=== PATIENT | female | born 1995 | race African-American/Black ===

== ENCOUNTER 2019-01-25 05:11 | Inpatient (IN) | payer BC, MEDICAID ==
[2019-01-25] VITALS (13 sets, daily range): BP systolic 100–121; BP diastolic 52–68
[~2019-01-25] VITALS: Ht 162.6 cm; Wt 72.1 kg
[2019-01-25] MEDS ORDERED: LACTATED RINGER'S 1,000 ML IV SCH (05:26)
[2019-01-25 06:25] LABS: Basophils # (auto) 0 uL; Basophils % (auto) 0.3 % (0.0-2.0); Eosinophils # (auto) 0.2 uL; Eosinophils % (auto) 1.6 % (0.0-7.0); Hematocrit 26.7 % (36.0-46.0); Lymphocytes # (auto) 2.2 uL; Lymphocytes % (auto) 23.1 % (10.0-50.0); Mean Corpuscular Hemoglobin 27.9 pg (28.0-32.0); Mean Corpuscular Hgb Conc. 33.7 g/dL (32.0-36.0); Mean Corpuscular Volume 82.7 fL (80.0-100.0); Monocytes # (auto) 0.6 uL; Monocytes % (auto) 6.8 % (0.0-12.0); Neutrophils # (auto) 6.4 uL; Neutrophils % (auto) 68.2 % (37.0-80.0); Nucleated Red Blood Cells % 0.2 %; Platelet Count (auto) 280 10^3/uL (140-450); Red Blood Cells 3.23 10^6/uL (4.0-5.20); Red Cell Distribution Width 14.1 % (11.8-14.3); White Blood Cell 9.3 10^3/uL (4.4-10.8)
[2019-01-25 06:26] LABS: Urine Bacteria FEW /hpf (None Seen); Urine Blood Negative /uL (Negative); Urine Mucus FEW (None Seen); Urine Specific Gravity 1.022 (1.001-1.035); Urine WBC 7 /hpf (0 - 5)
[2019-01-25 06:43] LABS: Albumin 2.5 g/dL (3.4-5.0); Calcium 8.4 mg/dL (8.5-10.1)
[2019-01-25 06:44] LABS: INR 0.85 (0.9-1.15); Partial Thromboplastin Time 24.5 sec (23.78-33.04); Prothrombin Time 9.2 sec (9.27-12.13)
[2019-01-25 06:46] LABS: BUN/Creatinine Ratio 13.7; Bilirubin, Total 0.7 mg/dL (0.2-1.0); Total Protein 6.3 g/dL (6.4-8.2)
[2019-01-25 06:48] LABS: Alcohol, Urine < 3.0 mg/dL (0-5); Amphetamine Screen, Urine NEGATIVE (NEGATIVE); Barbiturate Scree,Urine NEGATIVE (NEGATIVE); Benzodiazephine Screen, Urine NEGATIVE (NEGATIVE); Cannabinoid Screen, Urine NEGATIVE (NEGATIVE); Cocaine Screen, Urine NEGATIVE (NEGATIVE); Opiate Scree,Urine NEGATIVE (NEGATIVE); Phencyclidine Screen, Urine NEGATIVE (NEGATIVE)
[2019-01-25] MEDS ORDERED: TETRACAINE 1% INJ 2 ML VIAL IJ ONE (08:48)
[2019-01-25] MEDS ORDERED: MORPHINE SULF(PF) 0.5MG/ML 10ML VIAL ONE (09:09)
[2019-01-25] MEDS ORDERED: MIDAZOLAM HCL 1MG/1ML-2 ML VIAL ONE (09:09)
[2019-01-25] MEDS ORDERED: fentaNYL CITRATE 100 MCG/2 ML VL ONE (09:09)
[2019-01-25] MEDS ORDERED: ceFAZolin 1GM VL ONE (09:12)
[2019-01-25] MEDS ORDERED: OXYTOCIN 10 UNIT/ML 10ML VIAL ONE (09:52)
[2019-01-25] MEDS ORDERED: diphenhdrAMINE HCL 50 MG/1 ML VL ONE (09:52)
[2019-01-25] MEDS ORDERED: ePHEDrine SULFATE 50 MG/ML AMP IV PRN (10:30)
[2019-01-25] MEDS ORDERED: DexAMETHasone SOD PHOS 10MG/1ML VIAL INJ IV PRN (10:30)
[2019-01-25] MEDS ORDERED: ONDANSETRON HCL 4 MG/2 ML VIAL IV ONE (10:30)
[2019-01-25] MEDS ORDERED: MIDAZOLAM HCL 1MG/1ML-2 ML VIAL IV PRN (10:30)
[2019-01-25] MEDS ORDERED: hydrALAZINE HCL 20 MG/ML VL IV PRN (10:30)
[2019-01-25] MEDS ORDERED: HYDROmorphone HCL 2 MG/ML VL IV PRN ×2 (10:30)
[2019-01-25] MEDS ORDERED: NALBUPHINE HCL 10 MG/1ml INJECTION SUBCUT ONE (10:30)
[2019-01-25] MEDS ORDERED: LABETALOL HCL 5 MG/ML 4ML SYRINGE IV PRN (10:30)
[2019-01-25] MEDS ORDERED: NALOXONE HCL 0.4 MG/ML VIAL IV PRN (10:30)
[2019-01-25] MEDS ORDERED: ceFAZolin 1GM/50ML 50 ML IV SCH (10:30)
[2019-01-25] MEDS ORDERED: KETOROLAC TROMETH 30 MG/ML 1ML VIAL IV PRN (10:30)
[2019-01-25] MEDS ORDERED: diphenhdrAMINE HCL 50 MG/1 ML VL IV PRN (10:30)
[2019-01-25] MEDS ORDERED: ONDANSETRON HCL 4 MG/2 ML VIAL IV PRN ×2 (10:30)
--- NOTE | 2019-01-25 11:18 | NUR ---
PT REPORT RECEIVED FROM BOW MAKER GIFT WRAPPINGTIEN FATIMA. AWAITING ARRIVAL TO UNIT TO ROOM 7B.
--- NOTE | 2019-01-25 11:25 | NUR ---
PT REPORT RECEIVED FROM Lyudmila WATSON RN ON PATIENT, ASSUMING CARE.
--- NOTE | 2019-01-25 11:30 | NUR ---
Post Op for LDRP: Received patient from PACU via bed to room 7B. Patient A/A/Ox4, abdominal binder and bilateral SCD's are in place and compressing bilateral lower extremities, IV fluids placed on pump and infusing per order, incisional site dressing has serosanguineous drainage noted on island dressing, traced with yesenia. HEAT TREAT TECHNICIAN Paola at bedside and made aware. and Mandujano Catheter to gravity draining clear yellow urine. Incentive Spirometer at bedside and instruction on proper use with return demonstration done by patient. Pts fundus is firm, 1 below umbilicus, scant rubra bleeding noted on pad. No s/s of distress or sob noted. Will continue to monitor.
[2019-01-25] MEDS: KETOROLAC TROMETH 30 MG/ML 1ML VIAL IV SCH ×3 (12:00→23:13)
--- NOTE | 2019-01-25 13:20 | NUR ---
PT REFUSING BLOOD DRAW. PT EDUCATED ON THE IMPORTANCE OF BLOOD DRAW, WILL TRY AGAIN TOMORROW WITH CBC. WILL CONTINUE TO MONITOR.
[2019-01-25] MEDS: LACTATED RINGER'S 1,000 ML IV SCH ×2 (14:00→18:25)
--- NOTE | 2019-01-25 16:58 | NUR ---
NOTIFIED DR. PAREDES, STATUS UPDATE GIVEN, TRENDING VITAL SIGNS GIVEN, PT DENIES ANY S/S OF DISTRESS OR FEELING HOT. PT CURRENT TEMPERATURE IS 100.0 DEGREES FAHRENHEIT, COOLING MEASURES INITIATED. ORDERS RECEIVED FROM DR. PAREDES FOR OFRIMEV 1000MG IV ONCE. READ BACK AND VERIFIED ORDERS. WILL CARRY OUT.
[2019-01-25] MEDS ORDERED: ACETAMINOPHEN IV 1000 MG/100ML (10MG/ML) IV ONE (17:15)
--- NOTE | 2019-01-25 18:17 | NUR ---
PT REPORT GIVEN TO Candy GARCIA RN ON STABLE PATIENT, CURRENT TEMPERATUTRE 99.2. NO S/S OF DISTRESS OR SOB NOTED, RELINQUISHED PT CARE.
[2019-01-25] MEDS: ceFAZolin 1GM/50ML 50 ML IV SCH (18:32)
--- NOTE | 2019-01-26 02:00 | NUR ---
Harris catheter dc'd Order to discontinue harris catheter. Harris dc'd with clean technique following deflation of balloon,800 Patient tolerated well with no complaints of pain. Continue care.
[2019-01-26] MEDS: LACTATED RINGER'S 1,000 ML IV SCH (02:25)
[2019-01-26] MEDS: ceFAZolin 1GM/50ML 50 ML IV SCH ×2 (02:30→10:09)
[2019-01-26 02:51] VITALS: BP 86/55
[2019-01-26] MEDS: KETOROLAC TROMETH 30 MG/ML 1ML VIAL IV SCH (06:00)
--- NOTE | 2019-01-26 07:00 | NUR ---
LAB DRAW TYLER CAR SHIFTER AT TOP BEDSIDE FOR LAB DRAW. PT REFUSING BLOOD DRAW. PT EDUCATED ON THE IMPORTANCE OF THIS BLOOD DRAW, PT STILL REFUSING. PT STATES TO COME BACK IN AN HOUR AND SHE WILL THINK ABOUT HAVING BLOOD DRAW DONE. WILL CONTINUE TO MONITOR.
[2019-01-26 07:05] VITALS: BP 101/60
--- NOTE | 2019-01-26 08:20 | NUR ---
LAB DRAW ELOISE COCOA BEAN CLEANER AT PT BEDSIDE FOR LAB DRAW. PT STILL REFUSING BLOOD DRAW AT THIS TIME. EDUCATION REINFORCED ON THE IMPORTANCE OF THIS BLOOD DRAW, PT STILL REFUSING. COCOA BEAN CLEANER NOTIFIED AND WILL NOTIFY DR. ALICEA. WILL CONTINUE TO MONITOR.
--- NOTE | 2019-01-26 08:21 | NUR ---
LAB DRAW DR. ALICEA NOTIFIED THAT PT IS REFUSING HER MORNING CBC LAB DRAW, AND TYPE AND SCREEN DRAW AFTER ATTEMPT MADE TO DRAW THIS MORNING. STATUS UPDATE PROVIDED TO DR. ALICEA. PT IS STABLE AND ASYMPTOMATIC. DR. ALICEA MADE AWARE. ORDERS RECEIVED TO CONTINUE WITH CURRENT PLAN OF CARE. PT SIGNED REFUSAL TO PERMIT MEDICAL TREATMENT DOCUMENT FOR LAB DRAWS FOR BLOOD LEVELS/TESTS, AND PLACED IN PT CHART. WILL CONTINUE TO MONITOR.
--- NOTE | 2019-01-26 08:28 | NUR ---
DR. PAREDES NOTIFIED, STATUS UPDATE GIVEN, PT HAS NOT PASSED FLATUS YET, PT REFUSED CBC LAB DRAW THIS MORNING. ORDERS RECEIVED FROM DR. PAREDES FOR POST OP DAY 1 ORDERS, SALINE LOCK IV, ADVANCE DIET TOLERATED. READ BACK AND VERIFIED ORDERS. WILL CARRY OUT.
[2019-01-26] MEDS ORDERED: BISACODYL 10 MG RECT SUPP PR PRN (08:30)
[2019-01-26] MEDS: DOCUSATE CALCIUM 240 MG CAP PO SCH (10:09)
[2019-01-26] MEDS: DOCUSATE SOD 100 MG CAP PO SCH ×2 (10:09→21:34)
[2019-01-26 11:21] VITALS: BP 100/59
[2019-01-26] MEDS: IBUPROFEN 800 MG TAB PO PRN (11:23)
[2019-01-26] MEDS: SIMETHICONE 80 MG CHEWABLE TABLET PO SCH ×3 (11:23→21:34)
[2019-01-26 15:07] VITALS: BP 110/71
[2019-01-26] MEDS ORDERED: PHENYLEPHRINE HCL 10 MG/ML VL IV ONE (15:11)
[2019-01-26 20:00] VITALS: BP 120/82
[2019-01-26 23:15] VITALS: BP 117/67
[2019-01-27] VITALS (7 sets, daily range): BP systolic 102–122; BP diastolic 53–79
[2019-01-27] MEDS ORDERED: cefTRIAXone 1GM/50ML D5W 50 ML IV SCH
[2019-01-27] MEDS ORDERED: ACETAMINOPHEN 325 MG TAB PO PRN
--- NOTE | 2019-01-27 00:10 | NUR ---
PATIENT AMBULATING HALLWAY WITH STEADY GAIT.
--- NOTE | 2019-01-27 00:40 | NUR ---
PATIENT TEMP OF 101.3 AND WAS RETAKEN WITH A TEMP OF 101.9. TYLENOL PO GIVEN AT THIS TIME. NIKI WOODS MADE AWARE. PATIENT DENYING IV ACCESS AND IV FLUIDS/ANTIBIOTICS. PATIENT EDUCATED ON RISKS OF NOT HAVING IV ACCESS. NIKI BLACKBURN AWARE. PATIENT SIGNS REFUSAL OF TREATMENT FORM AND PLACED IN CHART.
--- NOTE | 2019-01-27 00:45 | NUR ---
PATIENT TEMP AFTER TYLENOL 98.9 ORAL.
[2019-01-27] MEDS ORDERED: CLINDAMYCIN HCL 150 MG CAP PO SCH ×4 (01:00→07:00)
[2019-01-27] MEDS ORDERED: CLINDAMYCIN HCL 150 MG CAP ONE (01:16)
[2019-01-27] MEDS: HYDROcodone-ACET 5/325MG TAB PO PRN ×3 (05:26→21:42)
[2019-01-27] MEDS: SIMETHICONE 80 MG CHEWABLE TABLET PO SCH ×4 (06:02→21:42)
[2019-01-27] MEDS: CLINDAMYCIN HCL 150 MG CAP PO SCH ×4 (08:03→21:42)
[2019-01-27] MEDS: IBUPROFEN 800 MG TAB PO PRN (10:52)
[2019-01-27] MEDS: DOCUSATE CALCIUM 240 MG CAP PO SCH (10:52)
[2019-01-27] MEDS: DOCUSATE SOD 100 MG CAP PO SCH ×2 (10:52→21:42)
--- NOTE | 2019-01-27 14:29 | NUR ---
NEW IV INSERTED BY [employer] SPECIALIST STUDENT WITH RN STANDING BY FOR OBSERVATION. 20 GAUGE TO THE LEFT AC.
[2019-01-28 04:00] VITALS: BP 117/76
[2019-01-28] MEDS: HYDROcodone-ACET 5/325MG TAB PO PRN ×2 (04:25→11:40)
[2019-01-28] MEDS: SIMETHICONE 80 MG CHEWABLE TABLET PO SCH ×2 (05:34→12:00)
[2019-01-28] MEDS: CLINDAMYCIN HCL 150 MG CAP PO SCH ×2 (05:34→12:00)
[2019-01-28 07:10] VITALS: BP 115/61
--- NOTE | 2019-01-28 10:28 | NUR ---
C/S Staple Removal DC Note: Orders received to remove bridgett. Bridgett removed using sterile technique by Gosia Moon RN. Lower abdominal incision approximated, no drainage/redness/inflammation visualized at time of removal. Steri-strips applied. Education provided on incisional care. Patient verbalized understanding and willingness to comply to instructions/teaching provided.
[2019-01-28 11:08] VITALS: BP 129/85
[2019-01-28] MEDS: DOCUSATE SOD 100 MG CAP PO SCH (11:08)
[2019-01-28] MEDS: DOCUSATE CALCIUM 240 MG CAP PO SCH (11:08)
--- NOTE | 2019-01-28 11:15 | NUR ---
Discharge: Discharge instructions given as ordered. Pt encouraged to follow up with MANUFACTURING ASSEMBLER as instructed. All questions and concerns addressed. Patient verbalized understanding. Medication reconciliation completed and copy given to patient. Patient encouraged to prepare to depart unit.
--- NOTE | 2019-01-28 11:55 | NUR ---
Discharge: Patient taken to vehicle via ambulatory per pt request, pt declined wheelchair with all personal belongings, accompanied by Gosia Moon RN and family member. No distress noted at time of departure, no adverse changes in status since initial assessment.
== END 2019-01-28 11:55 | disposition home or self-care (01) | DRG 787 ==
LOC: LDRP 05:11
PROVIDERS: ADMIT Specialist; ATTEND Specialist
PROC: 10D00Z1 Extraction of Products of Conception, Low, Open Approach (ICD-10-PCS; principal; 2019-01-25 09:01)
DX: O34.211 Maternal care for low transverse scar from previous cesarean delivery (principal); O75.2 Pyrexia during labor, not elsewhere classified; O99.02 Anemia complicating childbirth; D64.9 Anemia, unspecified; O69.81X0 Labor and delivery complicated by cord around neck, without compression, not applicable or unspecified; O99.52 Diseases of the respiratory system complicating childbirth; J45.909 Unspecified asthma, uncomplicated; Z37.0 Single live birth; Z3A.39 39 weeks gestation of pregnancy; Z91.19 Patient's noncompliance with other medical treatment and regimen
CPT/HCPCS: 36415; 51702; 59025; 80053; 80307; 81001; 81002; 85025; 85610; 85730; 86592; 86703; 86762; 86850; 86900; 86901; 86920; 87340; 94762; 96361; 96365; 96366; 96375; G0378; J0131; J0690; J1885; J2250; J2590

== ENCOUNTER → 2020-04-29 | Outpatient (CLI) | payer BC, MEDICAID | END | disposition home or self-care (01) | LOC: OB 10:42 | PROVIDERS: ATTEND Specialist | DX: O09.32 Supervision of pregnancy with insufficient antenatal care, second trimester (principal); Z3A.27 27 weeks gestation of pregnancy | CPT/HCPCS: 76805 ==

== ENCOUNTER 2020-07-12 03:56 | Inpatient (IN) | payer MEDICAID ==
[2020-07-11] MEDS: LACTATED RINGER'S 1,000 ML IV SCH (09:15)
[~2020-07-12] VITALS: Ht 162.6 cm; Wt 72.6 kg
[2020-07-12] VITALS (21 sets, daily range): BP systolic 89–112; BP diastolic 51–73
[2020-07-12] MEDS ORDERED: LACTATED RINGER'S 1,000 ML IV ONE (04:15)
[2020-07-12] MEDS ORDERED: LACTATED RINGER'S 1,000 ML IV SCH (04:15)
[2020-07-12] MEDS ORDERED: ceFAZolin 1GM/50ML 50 ML IV ONE (04:15)
[2020-07-12 06:23] LABS: Urine Bacteria FEW /hpf (None Seen); Urine Blood Negative /uL (Negative); Urine Specific Gravity 1.011 (1.001-1.035); Urine WBC 1 /hpf (0 - 5)
[2020-07-12 06:30] LABS: Basophils # (auto) 0.1 10 ^3/uL (0-0.2); Eosinophils # (auto) 0.1 10 ^3/uL (0-0.8); Hematocrit 24.1 % (36.0-46.0); Hemoglobin 7.6 g/dL (12.2-16.2); Lymphocytes # (auto) 1.9 10 ^3/uL (0.4-5.4); Mean Corpuscular Hemoglobin 23.5 pg (28.0-32.0); Monocytes # (auto) 0.6 10 ^3/uL (0-1.3); Nucleated Red Blood Cells % 0.2 %
[2020-07-12 06:33] LABS: Basophils % (auto) 0.6 % (0.0-2.0); Eosinophils % (auto) 1.2 % (0.0-7.0); Lymphocytes % (auto) 19.1 % (10.0-50.0); Mean Corpuscular Hgb Conc. 31.8 g/dL (32.0-36.0); Mean Corpuscular Volume 74.1 fL (80.0-100.0); Monocytes % (auto) 6.3 % (0.0-12.0); Neutrophils # (auto) 7.2 10 ^3/uL (1.6-8.6); Neutrophils % (auto) 72.8 % (37.0-80.0); Platelet Count (auto) 188 10^3/uL (140-450); Red Blood Cells 3.25 10^6/uL (4.0-5.20); White Blood Cell 9.9 10^3/uL (4.4-10.8)
[2020-07-12 06:37] LABS: INR 0.89 (0.9-1.15); Partial Thromboplastin Time 21.4 sec (23.0-31.2)
[2020-07-12 06:42] LABS: Albumin 2.6 g/dL (3.4-5.0); Calcium 8.3 mg/dL (8.5-10.1); Potassium 4.1 mmol/L (3.5-5.1)
[2020-07-12 06:47] LABS: Bilirubin, Total 0.5 mg/dL (0.2-1.0); Total Protein 6.3 g/dL (6.4-8.2)
[2020-07-12] MEDS ORDERED: TETRACAINE 1% INJ 2 ML VIAL IJ ONE (07:17)
[2020-07-12] MEDS ORDERED: PHENYLEPHRINE HCL 10 MG/ML VL IV ONE (07:38)
[2020-07-12] MEDS ORDERED: MORPHINE SULF(PF) 0.5MG/ML 10ML VIAL ONE (08:09)
[2020-07-12] MEDS ORDERED: MIDAZOLAM HCL 1MG/1ML-2 ML VIAL ONE (08:09)
[2020-07-12] MEDS ORDERED: OXYTOCIN 10UNIT/ML 1ML VIAL ONE ×2 (08:09→08:36)
[2020-07-12] MEDS ORDERED: fentaNYL CITRATE 100 MCG/2 ML VL ONE (08:09)
[2020-07-12] MEDS ORDERED: KETOROLAC TROMETH 30 MG/ML 1ML VIAL IV PRN (09:30)
[2020-07-12] MEDS ORDERED: HYDROmorphone HCL 2 MG/ML VL IV PRN ×2 (09:30)
[2020-07-12] MEDS ORDERED: LABETALOL HCL 5 MG/ML 4ML SYRINGE IV PRN (09:30)
[2020-07-12] MEDS ORDERED: DexAMETHasone SOD PHOS 10MG/1ML VIAL INJ IV PRN (09:30)
[2020-07-12] MEDS ORDERED: GUM (CHEWING) 1 GUM CHEW CHEW ONE (09:30)
[2020-07-12] MEDS ORDERED: ACETAMINOPHEN IV 1000 MG/100ML (10MG/ML) IV PRN (09:30)
[2020-07-12] MEDS ORDERED: NALOXONE HCL 0.4 MG/ML VIAL IV PRN (09:30)
[2020-07-12] MEDS ORDERED: ONDANSETRON HCL 4 MG/2 ML VIAL IV PRN ×3 (09:30)
[2020-07-12] MEDS ORDERED: ceFAZolin 1GM/50ML 50 ML IV SCH (09:30)
[2020-07-12] MEDS ORDERED: NALBUPHINE HCL 10 MG/1ml INJECTION SUBCUT ONE (09:30)
[2020-07-12] MEDS ORDERED: MIDAZOLAM HCL 1MG/1ML-2 ML VIAL IV PRN (09:30)
[2020-07-12] MEDS ORDERED: diphenhdrAMINE HCL 50 MG/1 ML VL IV PRN (09:30)
[2020-07-12] MEDS ORDERED: ePHEDrine SULFATE 50 MG/ML AMP IV PRN (09:30)
[2020-07-12] MEDS: LACTATED RINGER'S 1,000 ML IV SCH ×2 (12:46→22:54)
[2020-07-12] MEDS: ceFAZolin 1GM/50ML 50 ML IV SCH (16:31)
[2020-07-13] VITALS (11 sets, daily range): BP systolic 101–117; BP diastolic 49–75
[2020-07-13] MEDS: ceFAZolin 1GM/50ML 50 ML IV SCH ×2 (00:30→07:57)
[2020-07-13] MEDS ORDERED: PREN-96 PO (04:21)
[2020-07-13 05:11] LABS: RPR Non Reactive (Non Reactive)
[2020-07-13] MEDS ORDERED: HYDROcodone-ACET 5/325MG TAB PO PRN (11:15)
[2020-07-13] MEDS ORDERED: BISACODYL 10 MG RECT SUPP PR PRN (11:15)
[2020-07-13] MEDS: IBUPROFEN 800 MG TAB PO PRN (17:56)
[2020-07-13] MEDS: FERROUS SULFATE 325 MG TAB PO SCH (22:00)
[2020-07-13] MEDS: DOCUSATE SOD 100 MG CAP PO SCH (22:00)
[2020-07-14] MEDS: LACTATED RINGER'S 1,000 ML IV SCH (00:35)
[2020-07-14] MEDS: IBUPROFEN 800 MG TAB PO PRN ×3 (00:35→21:34)
[2020-07-14 03:00] VITALS: BP 117/60
[2020-07-14 07:30] VITALS: BP 108/72
[2020-07-14] MEDS: HYDROcodone-ACET 5/325MG TAB PO PRN ×2 (07:40→14:00)
[2020-07-14] MEDS ORDERED: DOCUSATE CALCIUM 240 MG CAP PO SCH (10:00)
[2020-07-14] MEDS: FERROUS SULFATE 325 MG TAB PO SCH ×2 (10:31→21:34)
[2020-07-14] MEDS: DOCUSATE SOD 100 MG CAP PO SCH ×2 (10:32→21:33)
[2020-07-14 11:00] VITALS: BP 101/68
[2020-07-14 15:00] VITALS: BP 109/68
[2020-07-14 19:00] VITALS: BP 118/63
[2020-07-14 23:00] VITALS: BP 109/67
[2020-07-15 03:00] VITALS: BP 112/59
[2020-07-15] MEDS: IBUPROFEN 800 MG TAB PO PRN (04:59)
[2020-07-15 06:30] VITALS: BP 110/68
[2020-07-15 09:00] VITALS: BP 114/74
== END 2020-07-15 09:00 | disposition home or self-care (01) | DRG 540 ==
LOC: LDRP 03:56
PROVIDERS: ADMIT Specialist; ATTEND Specialist
PROC: 30233N1 Transfusion of Nonautologous Red Blood Cells into Peripheral Vein, Percutaneous Approach (ICD-10-PCS; 2020-07-12)
PROC: 10D00Z1 Extraction of Products of Conception, Low, Open Approach (ICD-10-PCS; principal; 2020-07-12 07:48)
DX: O34.211 Maternal care for low transverse scar from previous cesarean delivery (principal); O99.02 Anemia complicating childbirth; Z37.0 Single live birth; Z3A.39 39 weeks gestation of pregnancy; D64.9 Anemia, unspecified
CPT/HCPCS: 36415; 59025; 80053; 81001; 85025; 85610; 85730; 86592; 86850; 86900; 86901; 86920; 94760; 94762; 96360; 96361; 96374; 96375; G0378; J0690; J1885; J2250

== ENCOUNTER 2021-09-22 12:45 | Emergency (ER) | payer MEDICAID ==
[~2021-09-22] VITALS: Ht 162.6 cm; Wt 52.2 kg
[~2021-09-22 12:45] MED LIST: PREN-96 PO
[2021-09-22 13:03] VITALS: BP 122/72
[2021-09-22 13:44] LABS: Urine Bacteria FEW /hpf (None Seen); Urine Blood Negative /uL (Negative); Urine Mucus FEW (None Seen); Urine Specific Gravity 1.012 (1.001-1.035); Urine WBC 3 /hpf (0 - 5)
== END 2021-09-22 15:59 | disposition home or self-care (01) ==
LOC: ER 12:45
DX: O20.0 Threatened abortion (principal); O23.42 Unspecified infection of urinary tract in pregnancy, second trimester; N39.0 Urinary tract infection, site not specified; Z3A.17 17 weeks gestation of pregnancy
CPT/HCPCS: 76805; 81001